=== PATIENT | male | born 1965 | race Caucasian/White ===

== ENCOUNTER 2016-04-04 08:43 | Emergency (ER) | payer MEDICAID ==
[~2016-04-04] VITALS: Ht 162.6 cm; Wt 78.2 kg
[~2016-04-04 08:43] MED LIST: ASPIRIN 81M81 MG/TA2 PO; ASPIRIN E.C. 8181 MG PO; CEFTIN500 MG PO; COREG 3.123.125 MG/T PO; FENTANYL 50MCG TD; FISH OIL 1000MG1 CAP PO; FLOMAX 0.40.4 MG/CAP PO; LAMICTAL XR200 MG PO; LAMICTAL200 MG PO; LASIX 20MG TABL20 MG PO; LIPITOR 80MG80 MG PO; NO HOME MEDICATIONS; NORCO 325 MG-51 TAB PO; PLAVIX 75MG TAB75 MG PO; PREDNISONE20 MG PO; PRINIVIL5 MG PO; PROTONIX 40MG T40 MG PO; RANEXA 500MG T500 MG PO; RANEXA1000 MG PO; REMERON 15M15 MG/TA1 PO; REMERON30 MG PO; TOPROL XL 25MG25 MG PO; VALIUM5 MG PO; VICODIN 5/300 PO; VOLTAREN 75 DR75 MG PO; ZOFRAN ODT4 MG PO; ZOLOFT 100MG100 MG PO; ZOLOFT 50MG50 MG PO
[2016-04-04 08:45] VITALS: BP 145/90; TEMP 98.4
[2016-04-04 09:42] LABS: BASO % 0.4 % (0.0-2.0); EOS # 0.2 (0.0-0.7); EOS % 2.9 % (0-4.0); GRAN % 58.5 % (42.2-75.2); HEMATOCRIT 43.6 % (42.0-52.0); HEMOGLOBIN 14.5 g/dl (13.5-18.0); LYMPH # 1.9 (1.2-3.4); LYMPH % 28.4 % (20.0-51.0); MEAN CELL VOLUME 88 fl (80.0-100.0); MEAN CORPUSCULAR HEMOGLOBIN 29 pg (27.0-31.0); MEAN CORPUSCULAR HGB CONC 33 g/dl (33.0-37.0); MEAN PLATELET VOLUME 8.7 fl (7.4-10.4); MONO # 0.6 (0.1-0.6); MONO % 9.4 % (1.7-9.3); PLATELET COUNT 298 K/mm3 (130-400); RED BLOOD COUNT 4.95 M/mm3 (4.20-5.60); REDCELL DISTRIBUTION WIDTH-CV 12.7 % (11.5-14.5); WHITE BLOOD COUNT 6.8 K/mm3 (4.8-10.8)
[2016-04-04 09:53] LABS: ADJUSTED CALCIUM 9.2 mg/dL (8.4-10.2); BILIRUBIN,TOTAL 0.7 mg/dL (0.0-1.0); C-REACTIVE PROTEIN 3.4 mg/dL (0.0-0.9); CALCIUM 9.2 mg/dL (8.4-10.2); CREATININE, serum 0.89 mg/dL (0.66-1.25); POTASSIUM 4.5 mmol/L (3.4-5.0)
[2016-04-04 10:45] LABS: ERYTHROCYTE SEDIMENTATION RATE 7 mm/hr (0-30)
[2016-04-04] MEDS ORDERED: MEDROL 4MG DOSPA4 MG PO (10:59)
[2016-04-04 11:21] VITALS: PULSE 79
== END 2016-04-04 11:26 | disposition home or self-care (01) ==
LOC: COL.ER 08:43
PROVIDERS: Emergency Medicine
DX: R51 Headache (principal)
CPT/HCPCS: J1100; J1200; J1630; J7030

== ENCOUNTER → 2016-04-22 | Outpatient (REF) ==
[~2016-04-22] MED LIST changes: +MEDROL 4MG DOSPA4 MG PO
[2016-04-22 17:28] LABS: TOTAL IRON BINDING CAPACITY 388 ug/dL (261-462)
[2016-04-22 17:37] LABS: FERRITIN 43 ng/mL (18-464)
== END ==
LOC: ZLAB.WCH 16:01
PROVIDERS: Internal Medicine
DX: Z01.89 Encounter for other specified special examinations (principal)

== ENCOUNTER → 2016-08-28 | Outpatient (REF) | LOC: ZLAB.WCH 18:33 | DX: Z01.89 Encounter for other specified special examinations (principal) ==

== ENCOUNTER → 2016-11-18 | Outpatient (CLI) | payer OTHER | LOC: COL.PUL 11-03 11:20 | DX: R06.02 Shortness of breath (principal); Z87.891 Personal history of nicotine dependence ==

== ENCOUNTER → 2017-02-27 | Outpatient (REF) ==
[2017-02-27 22:48] LABS: PSA-TOTAL 1.88 ng/mL (0-4); THYROID STIMULATING HORMONE 1.96 uIU/mL (0.465-4.680)
== END ==
LOC: ZLAB.WCH 19:05
PROVIDERS: Internal Medicine
DX: Z01.89 Encounter for other specified special examinations (principal)
CPT/HCPCS: G0103

== ENCOUNTER 2019-11-08 20:37 | Observation (INO) | payer MEDICARE ==
[~2019-11-08] VITALS: Ht 162.6 cm; Wt 70.3 kg
[2019-11-08 21:30] LABS: ALANINE AMINOTRANSFERASE 24 U/L (4-49); ALBUMIN 4.6 gm/dL (3.5-5.0); ALKALINE PHOSPHATASE 63 U/L (50-136); ANION GAP 14 mmol/L (7-16); AST,SGOT 29 U/L (15-37); BILIRUBIN,TOTAL 0.6 mg/dL (0.0-1.0); BLOOD UREA NITROGEN 21 mg/dL (9-20); CALCIUM 9.3 mg/dL (8.4-10.2); CARBON DIOXIDE 26 mmol/L (22-30); CHLORIDE 98 mmol/L (98-107); CREATININE, serum 1.62 (0.66-1.25); GLUCOSE 119 mg/dL (74-106); SODIUM 138 mmol/L (137-145); TOTAL PROTEIN 7.8 gm/dL (6.4-8.2)
[2019-11-08 21:31] LABS: BASO % 0.4 % (0.0-2.0); EOS # 0.1 (0.0-0.7); EOS % 1.4 % (0-4.0); GRAN # 5.1 (1.4-6.5); GRAN % 63.3 % (42.2-75.2); HEMATOCRIT 41.6 % (42.0-52.0); HEMOGLOBIN 14.2 g/dl (13.5-18.0); LYMPH # 2.1 (1.2-3.4); LYMPH % 26.9 % (20.0-51.0); MEAN CELL VOLUME 85 fl (80.0-100.0); MEAN CORPUSCULAR HEMOGLOBIN 29 pg (27.0-31.0); MEAN CORPUSCULAR HGB CONC 34 g/dl (33.0-37.0); MEAN PLATELET VOLUME 9.3 fl (7.4-10.4); MONO # 0.6 (0.1-0.6); MONO % 7.2 % (1.7-9.3); PLATELET COUNT 348 K/mm3 (130-400); RED BLOOD COUNT 4.91 M/mm3 (4.20-5.60); REDCELL DISTRIBUTION WIDTH-CV 13.2 % (11.5-14.5)
[2019-11-08 22:15] LABS: TROPONIN-I < 0.012 ng/mL (0.000-0.035)
[2019-11-08] MEDS ORDERED: DESYREL 100MG100 MG PO (22:39)
[2019-11-08] MEDS ORDERED: LAMICTAL200 MG PO (22:39)
[2019-11-08] MEDS ORDERED: DEPO-TESTOS200 MG/M1 IM (22:40)
[2019-11-08] MEDS ORDERED: COREG 25MG25 MG/TAB PO (22:40)
[2019-11-08] MEDS ORDERED: PROTONIX 40MG T40 MG PO (22:40)
[2019-11-08] MEDS ORDERED: K-TAB20 PO (22:41)
[2019-11-08] MEDS ORDERED: PRINIVIL10 MG PO (22:41)
[2019-11-08] MEDS ORDERED: LASIX 20MG TABL20 MG PO (22:42)
[2019-11-08] MEDS ORDERED: PLAVIX 75MG TAB75 MG PO (22:42)
[2019-11-08] MEDS ORDERED: RANEXA1000 MG PO (22:43)
[2019-11-08] MEDS ORDERED: LIPITOR 80MG80 MG PO (22:43)
[2019-11-08] MEDS ORDERED: LOFIBRA160 MG PO (22:43)
[2019-11-08] MEDS ORDERED: KLONOPIN 0.5MG0.5 MG PO (22:44)
[2019-11-08] MEDS ORDERED: VIIBRYD40 MG PO (22:44)
[2019-11-08] MEDS ORDERED: SEROQUEL50 MG PO (22:44)
[2019-11-08] MEDS ORDERED: ABILIFY 15MG TA15 MG PO (22:44)
[2019-11-08] MEDS ORDERED: PULMICORT90 MCG/Act IH (22:45)
[2019-11-08] MEDS ORDERED: PROAIR HFA0.09 MG/AC IH (22:46)
--- NOTE | 2019-11-08 23:40 | NUR ---
Received patient from ER. Patient came in walking. He is alert and oriented. He denies pain. He has INT on his left AC. 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 Assesment done. List of medicines were given to Mckayla PORTILLO. Patient has been walking frequently inside his bedroom. He wanted to take a shower tonight. Explained to patient the potassium protocol and he verbalizes understanding. Provided patient with sandwich box. Call light within reach.
[2019-11-08] MEDS ORDERED: NORCO 325 MG-7.1 TAB PO (23:52)
[2019-11-08 23:53] VITALS: BP 119/80; PULSE 77; TEMP 98.1
[2019-11-08 23:55] VITALS: BP 119/80; PULSE 75; TEMP 98.1
[2019-11-09] MEDS ORDERED: ASPIRIN 81M81 MG/TA2 PO (00:16)
[2019-11-09 04:37] VITALS: BP 94/63; PULSE 61; TEMP 97.3
--- NOTE | 2019-11-09 05:38 | NUR ---
Patient had uneventful night. He denies pain. Potassium dosage completed. He did take a bath last night. Will endorse to day shift nurse.
[2019-11-09 07:23] LABS: BASO % 0.4 % (0.0-2.0); EOS # 0.1 (0.0-0.7); EOS % 1.8 % (0-4.0); GRAN # 4.1 (1.4-6.5); GRAN % 60.6 % (42.2-75.2); HEMATOCRIT 38.3 % (42.0-52.0); HEMOGLOBIN 12.7 g/dl (13.5-18.0); LYMPH # 1.9 (1.2-3.4); LYMPH % 27.4 % (20.0-51.0); MEAN CELL VOLUME 85 fl (80.0-100.0); MEAN CORPUSCULAR HEMOGLOBIN 28 pg (27.0-31.0); MEAN CORPUSCULAR HGB CONC 33 g/dl (33.0-37.0); MEAN PLATELET VOLUME 9.5 fl (7.4-10.4); MONO # 0.6 (0.1-0.6); MONO % 8.8 % (1.7-9.3); PLATELET COUNT 323 K/mm3 (130-400); RED BLOOD COUNT 4.49 M/mm3 (4.20-5.60); REDCELL DISTRIBUTION WIDTH-CV 13.2 % (11.5-14.5)
[2019-11-09 07:29] LABS: CALCIUM 8.8 mg/dL (8.4-10.2); CREATININE, serum 1.49 (0.66-1.25); MAGNESIUM 2.7 mg/dL (1.6-2.3); POTASSIUM 4.5 mmol/L (3.4-5.0)
[2019-11-09 08:18] VITALS: BP 116/77; PULSE 76; TEMP 98.1
--- NOTE | 2019-11-09 09:15 | NUR ---
Pt awake and alert upon entry, no C/O pain currently, verbal order to keep Pt NPO for possible pacemeker lead revision, heparin held for possible procedure. Shift assessments complete, left Pt call light in reach, bed in lowest position.
--- NOTE | 2019-11-09 11:37 | NUR ---
KAI met with the patient to discuss discharge plan. The patient lives in [place] with his parents: Karan (ph#[phone]), Sima, and his brother (Karan, ph#[phone]). He reports independence with ADLs and does not have any DME. The patient's PCP is Dr. Maikel Knight and he receives his medications at [facility]. The patient does not have advanced directives, but he was interested in obtaining a form for DPOA-HC. KAI provided. The patient states that he is not . He states that he has two adult children: Cirilo and Sadaf. The patient plans to return home with his family upon discharge. No additional needs at this time.
[2019-11-09 12:36] VITALS: BP 99/59; PULSE 57; TEMP 97.9
--- NOTE | 2019-11-09 12:56 | NUR ---
First visit from the post doctoral researcher. No needs right now.
[2019-11-09 16:28] VITALS: BP 104/65; PULSE 73; TEMP 98
--- NOTE | 2019-11-09 19:43 | NUR ---
Pt resting in the room most of the day, has ambulated in the hallway on own, no C/O pain. VS have remained stable.
[2019-11-09 19:44] VITALS: BP 96/64; PULSE 72; TEMP 97
--- NOTE | 2019-11-09 21:50 | NUR ---
Pt assessment completed, charted, alert, oriented, roomair, independpent. Meds provided as per MAY, tolerated well. Helped him settled down on bed, call light on reach. No further needs at this time.
[2019-11-09 23:19] VITALS: BP 109/65; PULSE 84; TEMP 99.2
[2019-11-10 03:27] VITALS: BP 122/65; PULSE 86; TEMP 98.7
--- NOTE | 2019-11-10 04:56 | NUR ---
Pt had an uneventful night, slept on and off through out the night. No further needs at this time.
[2019-11-10 07:23] VITALS: BP 112/69; PULSE 73; TEMP 98.3
[2019-11-10 07:41] LABS: BASO % 0.3 % (0.0-2.0); EOS # 0.1 (0.0-0.7); GRAN # 4.3 (1.4-6.5); GRAN % 60.2 % (42.2-75.2); HEMATOCRIT 37.8 % (42.0-52.0); HEMOGLOBIN 12.5 g/dl (13.5-18.0); LYMPH # 2.1 (1.2-3.4); LYMPH % 29.4 % (20.0-51.0); MEAN CELL VOLUME 87 fl (80.0-100.0); MEAN CORPUSCULAR HEMOGLOBIN 29 pg (27.0-31.0); MEAN CORPUSCULAR HGB CONC 33 g/dl (33.0-37.0); MEAN PLATELET VOLUME 9.4 fl (7.4-10.4); MONO # 0.6 (0.1-0.6); MONO % 8.5 % (1.7-9.3); PLATELET COUNT 302 K/mm3 (130-400); RED BLOOD COUNT 4.35 M/mm3 (4.20-5.60); REDCELL DISTRIBUTION WIDTH-CV 13.3 % (11.5-14.5)
[2019-11-10 07:56] LABS: CALCIUM 9.1 mg/dL (8.4-10.2); CREATININE, serum 1.32 (0.66-1.25); MAGNESIUM 2.3 mg/dL (1.6-2.3); POTASSIUM 3.4 mmol/L (3.4-5.0)
--- NOTE | 2019-11-10 08:50 | NUR ---
Pt awake and alert this morning, upon entry, no C/O pain tasneem this time, shift assessments complete, left Pt call light in reach, bed in lowest position.
--- NOTE | 2019-11-10 13:30 | NUR ---
Pt discharged to home, discussed discharge instructions, answered questions. Escorted Pt to entrance, Pt left with family vis private auto.
== END 2019-11-10 13:30 | disposition home or self-care (01) ==
LOC: COL.ER 20:37 → MEDICAL 21:47
PROVIDERS: Emergency Medicine; Nurse Practitioner Family; Physician Assistant; ADMIT Hospitalist
DX: T82.118A Breakdown (mechanical) of other cardiac electronic device, initial encounter (principal); E87.6 Hypokalemia; N18.9 Chronic kidney disease, unspecified; I25.10 Atherosclerotic heart disease of native coronary artery without angina pectoris; I42.9 Cardiomyopathy, unspecified; F43.10 Post-traumatic stress disorder, unspecified; F32.9 Major depressive disorder, single episode, unspecified; G89.29 Other chronic pain; K21.9 Gastro-esophageal reflux disease without esophagitis; Z85.820 Personal history of malignant melanoma of skin; J44.9 Chronic obstructive pulmonary disease, unspecified; Z79.02 Long term (current) use of antithrombotics/antiplatelets; Z79.82 Long term (current) use of aspirin; Z87.891 Personal history of nicotine dependence; I25.2 Old myocardial infarction
CPT/HCPCS: 99232-AI; G0378; J1644; J3475

== ENCOUNTER 2020-08-16 13:12 | Emergency (ER) | payer MEDICARE ==
[~2020-08-16] VITALS: Ht 165.1 cm; Wt 79.5 kg
[~2020-08-16 13:12] MED LIST changes: +ABILIFY 15MG TA15 MG PO; +COREG 25MG25 MG/TAB PO; +DEPO-TESTOS200 MG/M1 IM; +DESYREL 100MG100 MG PO; +K-TAB20 PO; +KLONOPIN 0.5MG0.5 MG PO; +LOFIBRA160 MG PO; +NORCO 325 MG-7.1 TAB PO; +PRINIVIL10 MG PO; +PROAIR HFA0.09 MG/AC IH; +PULMICORT90 MCG/Act IH; +SEROQUEL50 MG PO; +VIIBRYD40 MG PO
[2020-08-16 13:18] VITALS: TEMP 98.5
[2020-08-16 13:44] LABS: BASO % 0.3 % (0.0-2.0); EOS # 0.1 (0.0-0.7); EOS % 1.3 % (0-4.0); GRAN % 63.9 % (42.2-75.2); HEMATOCRIT 42.3 % (42.0-52.0); HEMOGLOBIN 14.2 g/dl (13.5-18.0); LYMPH # 1.5 (1.2-3.4); LYMPH % 23.5 % (20.0-51.0); MEAN CELL VOLUME 86 fl (80.0-100.0); MEAN CORPUSCULAR HEMOGLOBIN 29 pg (27.0-31.0); MEAN CORPUSCULAR HGB CONC 34 g/dl (33.0-37.0); MONO # 0.7 (0.1-0.6); MONO % 10.7 % (1.7-9.3); PLATELET COUNT 311 K/mm3 (130-400); RED BLOOD COUNT 4.94 M/mm3 (4.20-5.60); REDCELL DISTRIBUTION WIDTH-CV 13.2 % (11.5-14.5)
[2020-08-16 14:03] LABS: ALANINE AMINOTRANSFERASE 23 U/L (4-49); ALBUMIN 4.3 gm/dL (3.5-5.0); ALKALINE PHOSPHATASE 45 U/L (50-136); ANION GAP 7 mmol/L (7-16); AST,SGOT 22 U/L (15-37); BILIRUBIN,TOTAL 0.6 mg/dL (0.0-1.0); BLOOD UREA NITROGEN 12 mg/dL (9-20); CALCIUM 9.1 mg/dL (8.4-10.2); CARBON DIOXIDE 24 mmol/L (22-30); CHLORIDE 105 mmol/L (98-107); CREATININE, serum 1.08 (0.66-1.25); GLUCOSE 104 mg/dL (74-106); SODIUM 136 mmol/L (137-145); TOTAL PROTEIN 7.5 gm/dL (6.4-8.2)
[2020-08-16 14:22] LABS: TROPONIN-I < 0.012 ng/mL (0.000-0.035)
[2020-08-16 15:57] LABS: INR 1.1 (0.8-3.0); PARTIAL THROMBOPLASTIN TIME 33.1 SECONDS (26.0-37.0); PROTHROMBIN TIME 11.9 SECONDS (9.7-12.8)
[2020-08-16 16:30] VITALS: BP 129/84; PULSE 75
== END 2020-08-16 16:30 | disposition left against medical advice (07) ==
LOC: COL.ER 13:12
PROVIDERS: Family Medicine
DX: R07.89 Other chest pain (principal); I25.10 Atherosclerotic heart disease of native coronary artery without angina pectoris; I21.3 ST elevation (STEMI) myocardial infarction of unspecified site; J44.9 Chronic obstructive pulmonary disease, unspecified; F43.10 Post-traumatic stress disorder, unspecified; Z95.0 Presence of cardiac pacemaker; Z87.891 Personal history of nicotine dependence; Z79.02 Long term (current) use of antithrombotics/antiplatelets; Z79.51 Long term (current) use of inhaled steroids; Z79.82 Long term (current) use of aspirin
CPT/HCPCS: J0780

== ENCOUNTER → 2022-04-08 | Outpatient (CLI) | payer MEDICARE | LOC: COL.RAD 13:00 | DX: R42 Dizziness and giddiness (principal); E87.8 Other disorders of electrolyte and fluid balance, not elsewhere classified | CPT/HCPCS: Q9967 ==

== ENCOUNTER → 2023-06-08 | Outpatient (CLI) | payer MEDICARE | LOC: COL.LAB 15:17 | DX: N28.89 Other specified disorders of kidney and ureter (principal); R93.422 Abnormal radiologic findings on diagnostic imaging of left kidney ==

== ENCOUNTER 2023-10-06 06:29 | Day surgery (SDC) | payer MEDICARE ==
[2023-10-06] VITALS (10 sets, daily range): BP systolic 106–150; BP diastolic 55–87; PULSE 59–75; TEMP 97.6–99.3
[~2023-10-06] VITALS: Ht 160 cm; Wt 76.0 kg
[~2023-10-06 06:29] MED LIST changes: +K-DUR20 MEQ PO; -K-TAB20 PO; +LASIX 40MG TABL40 MG PO; +SEROQUEL 200MG200 MG PO; -SEROQUEL50 MG PO
[2023-10-06] MEDS ORDERED: LR 1,000 ML IV SCH ×2 (07:00→11:15)
[2023-10-06] MEDS ORDERED: Famotidine 20 MG TAB PO SCH (07:00)
[2023-10-06] MEDS ORDERED: fentaNYL 50 MCG/ML 2 ML VIAL ONE ×2 (07:27→09:18)
[2023-10-06] MEDS ORDERED: Rocuronium 50 MG/5 ML Multi-Dose VIAL ONE (07:27)
[2023-10-06] MEDS ORDERED: Midazolam 2 MG/2 ML VIAL ONE (07:27)
[2023-10-06] MEDS ORDERED: Acetaminophen 500 MG TAB PO SCH ×2 (07:30→12:12)
[2023-10-06] MEDS ORDERED: Celecoxib 200 MG CAP PO SCH (07:30)
[2023-10-06] MEDS ORDERED: Gabapentin 100 MG CAP PO SCH (07:30)
[2023-10-06] MEDS ORDERED: Lidocaine PF 2% (20 MG/ML) 5 ML VIAL ONE (07:34)
[2023-10-06] MEDS ORDERED: Ondansetron 4 MG/2 ML VIAL ONE (07:36)
[2023-10-06] MEDS ORDERED: Glycopyrrolate 0.2 MG/ML 1 ML VIAL ONE (07:36)
[2023-10-06] MEDS ORDERED: dexAMETHasone 10 MG/ML VIAL ONE (07:36)
[2023-10-06] MEDS ORDERED: NS 10 ML IV ONE (07:53)
[2023-10-06] MEDS ORDERED: Topical Skin Adhesive 1 EACH (1 ML) TOP ONE (08:00)
[2023-10-06] MEDS ORDERED: ARNUITY IH (08:44)
[2023-10-06] MEDS ORDERED: ENTRESTO 24 MG1 EACH PO (08:46)
[2023-10-06] MEDS ORDERED: D3-5050000 IU PO (08:48)
[2023-10-06] MEDS ORDERED: EPA FISH OIL1 SGL PO (08:49)
[2023-10-06] MEDS ORDERED: IMDUR 60MG60 MG/TAB PO (08:51)
[2023-10-06] MEDS ORDERED: REMERON45 MG PO (08:53)
[2023-10-06] MEDS ORDERED: NITROSTAT0.4 MG/TAB SL (08:54)
[2023-10-06] MEDS ORDERED: ULTRAM 50MG TAB50 MG PO (08:55)
[2023-10-06] MEDS ORDERED: OZEMPIC0.25 MG/02 SQ (10:39)
[2023-10-06] MEDS ORDERED: fentaNYL 50 MCG/ML 1 ML SYRINGE/VIAL [PACU/SDC ONLY] IV PRN (11:00)
[2023-10-06] MEDS ORDERED: hydrALAZINE 20 MG/ML 1 ML VIAL IV PRN (11:00)
[2023-10-06] MEDS ORDERED: Ondansetron 4 MG/2 ML VIAL IV PRN ×2 (11:00→11:15)
[2023-10-06] MEDS ORDERED: HYDROmorphone 1 MG/1 ML SYRINGE [PACU/SDC ONLY] IV PRN (11:00)
[2023-10-06] MEDS ORDERED: Morphine 4 MG/ML VIAL IV PRN (11:15)
[2023-10-06] MEDS ORDERED: Hyoscyamine 0.125 MG Sublingual TAB SL PRN (11:15)
[2023-10-06] MEDS ORDERED: oxyCODONE 5 MG TAB PO PRN ×2 (11:15)
[2023-10-06] MEDS ORDERED: Naloxone 0.4 MG/ML VIAL IV PRN (11:15)
[2023-10-06] MEDS ORDERED: ePHEDrine 50 MG/ML VIAL ONE (11:43)
--- NOTE | 2023-10-06 12:50 | NUR ---
PATIENT ADMITED INTO ROOM 349 POST OP. ALERT, ORIENTED X3, BUT IS VERY TALKATIVE AND SEEMS A LITTLE INFLUENCED BY THE ANESTHESIA. GIRLFRIEND AT BEDSIDE LAUGHING AT PATIENT'S COMMENTS. VSS. NO C/O PAIN OR NAUSEA. IV FLUIDS INFUSING INTO RIGHT HAND IV. LEFT HAND IV TO INT. GOSS TO DD WITH SMALL AMOUNTS OF YELLOW URINE NOTED. ABD LAP SITES X6 WITH GLUED CLOSURE. HEAD TO TOE ASSESSMENT COMPLETE. SCD'S TO BLE. ORIENTED TO ROOM. NO OTHER NEEDS AT THIS TIME. CALL LIGHT IN REACH.
[2023-10-06] MEDS ORDERED: Carvedilol 25 MG TAB PO SCH (17:00)
--- NOTE | 2023-10-06 18:51 | NUR ---
report received from jahaiar kwon. pt resting in bed with girlfriend at bedside. pt reporting some pain but just recieved PRN from previous shift. call light in reach. all needs met at this time.
[2023-10-06] MEDS ORDERED: Budesonide Neb Susp 0.5 MG/2 ML AMP IH SCH (19:00)
[2023-10-06] MEDS ORDERED: ceFAZolin 1 G in Water For Injection,Sterile 10 ML IV SCH (20:00)
[2023-10-06] MEDS ORDERED: QUEtiapine 25 MG TAB PO SCH (21:00)
[2023-10-06] MEDS ORDERED: Sennosides/Docusate 8.6-50 MG TAB PO SCH (21:00)
[2023-10-06] MEDS ORDERED: traZODone 100 MG TAB PO SCH (21:00)
[2023-10-06] MEDS ORDERED: Mirtazapine 15 MG TAB PO SCH (21:00)
[2023-10-06] MEDS ORDERED: Ranolazine ER 500 MG TAB PO SCH (21:00)
--- NOTE | 2023-10-06 21:52 | NUR ---
shift assessment complete, see documentation. pt tolerated hs meds well. pt reporting 9/10 abd pain, prn morphine administered per orders. pt resting in bed with girlfriend at bedside. call light in reach. all needs met at this time.
[2023-10-07] VITALS (11 sets, daily range): BP systolic 100–150; BP diastolic 62–67; PULSE 70–76; TEMP 98–98.8
--- NOTE | 2023-10-07 00:03 | NUR ---
pt finally sleeping. equal and unlabored breaths noted. did not get midnight vitals d/t pt resting.
--- NOTE | 2023-10-07 01:59 | NUR ---
pt reporting increased abd pain rated 7/10. prn oxycodone administered per orders.
--- NOTE | 2023-10-07 05:34 | NUR ---
pt salgado removed. pt tolerated procedure well.
[2023-10-07 06:11] LABS: HEMATOCRIT 38.1 % (42.0-52.0); HEMOGLOBIN 12.7 g/dl (13.5-18.0)
[2023-10-07 06:20] LABS: CALCIUM 8.8 mg/dL (8.4-10.2); CREATININE, serum 1.52 mg/dL (0.72-1.25); POTASSIUM 3.8 mEq/L (3.5-4.5)
--- NOTE | 2023-10-07 06:55 | NUR ---
PT SLEEPING IN BED. PT IS RA. PT IS NOT ON TELE. PT HAS NO IVF. PT IS DTV, URINAL BEDSIDE. PT IS AXOX4. PT HAS CALL LIGHT AND INSTRUCTED TO CALL WITH ALL NEEDS.
[2023-10-07] MEDS ORDERED: Isosorbide Mononitrate CR (24-HR) 60 MG TAB PO SCH (07:00)
[2023-10-07] MEDS ORDERED: Fluticasone Furoate 100 MCG/Inhalation INHALER IH SCH (09:00)
[2023-10-07] MEDS ORDERED: ARIPiprazole 5 MG TAB PO SCH (09:00)
[2023-10-07] MEDS ORDERED: Vilazodone 10 MG TAB PO SCH (09:00)
[2023-10-07] MEDS ORDERED: Furosemide 40 MG TAB PO SCH (09:00)
[2023-10-07] MEDS ORDERED: lamoTRIgine 100 MG TAB PO SCH (09:00)
--- NOTE | 2023-10-07 09:29 | NUR ---
KAI met with patient and his friend to complete initial assessment for discharge planning. Patient verified that he lives in [place] with a roommate. He lists his friend Becky Cole ([phone]) as his emergency contact. Patient denies having a DPOA and declines to complete one at this time, and states he is working on completing one. Patient sees MOISÉS Nava, as his PCP and uses [facility]. Patient denies having any DME. Patient states he drive himself to appointments but always takes someone with him. Patient plans to return home at discharge. Discharge plan: Home
--- NOTE | 2023-10-07 12:59 | NUR ---
Data: Patient declined spiritual care visit offered during Associate Professor Of Education rounds because he was trying to sleep. Patient accepted a rosary which was placed on his bedside table. Assessment: None. Patient declined. Plan of Care: Chaplains will remain available as needed/requested while Patient is admitted to this hospital.
--- NOTE | 2023-10-07 16:43 | NUR ---
SPOKE WITH REGARDING PTS STATUS. PT TOLERATING FOOD WELL. PT'S PAIN CONTROLLED ON PO PAIN MEDS. PT VOIDING WITHOUT DIFFICULTY. WILL PLAN TO DC IN THE AM.
--- NOTE | 2023-10-07 19:10 | NUR ---
report received from santana kwon. pt sitting in bed finishing dinner. pt denies pain. call light in reach. all needs met at this time.
--- NOTE | 2023-10-07 19:47 | NUR ---
pt now reporting 8/10 abd pain, prn oxycodone administered. pt educated walking might release some gas pain, pt acknowledged.
[2023-10-07] MEDS ORDERED: Atorvastatin 80 MG TAB PO SCH (21:00)
--- NOTE | 2023-10-07 21:35 | NUR ---
shift assessment complete, see documentation. pt tolerated hs meds. pt reporting abd rated 3/10. pt ambulated halls and stated that relieved some of his pain. resting in bed now. call light in reach. all needs met at this time.
[2023-10-08 00:03] VITALS: BP 108/66; PULSE 89; TEMP 98.8
[2023-10-08 01:31] VITALS: BP_SYST 108
[2023-10-08 03:24] VITALS: BP 111/71; PULSE 86; TEMP 98.2
--- NOTE | 2023-10-08 03:32 | NUR ---
pt reporting abd pain rated 7/10, prn oxycodone administered per orders.
[2023-10-08 05:02] VITALS: BP_SYST 111
[2023-10-08 07:10] VITALS: BP 102/64; PULSE 73; TEMP 98.5
[2023-10-08] MEDS ORDERED: PERCOCET 325 MG1 TA2 PO (07:44)
[2023-10-08 08:00] VITALS: BP_SYST 102
--- NOTE | 2023-10-08 09:49 | NUR ---
SHIFT ASSESSMENT COMPLETE. VSS. PATIENT AWAKE AND UP AMBULATING ROOM. ALL MORNING MEDS GIVEN ORDERED. PATIENT STATES NO PIAN AT THIS TIME. PATIENT HAS DISCHARGE ORDERS IN AND WILL DISCHARGE THIS AM. PATIENT HAS NO NEEDS AT THSI TIME. CALL LIGHT IN REACH.
--- NOTE | 2023-10-08 10:36 | NUR ---
DISCHARGE INSTRUCTIONS GIVEN AND ALL QUESTIONS ANSWERED. PATIENTS RIDE WILL HERE AROUND 11AM. INT DC'D CATHETER INTACT. PATIENT HAS NO OTHER NEEDS.
== END 2023-10-08 11:37 | disposition home or self-care (01) ==
LOC: SDCO 06:29 → SURG 12:45 → SDCO 10-08 11:37
PROVIDERS: Urology
DX: C64.2 Malignant neoplasm of left kidney, except renal pelvis (principal); E11.9 Type 2 diabetes mellitus without complications; Z85.820 Personal history of malignant melanoma of skin; Z92.3 Personal history of irradiation; Z87.891 Personal history of nicotine dependence; Z95.810 Presence of automatic (implantable) cardiac defibrillator; Z95.5 Presence of coronary angioplasty implant and graft; G47.33 Obstructive sleep apnea (adult) (pediatric)
CPT/HCPCS: OP; A4314; A9284; J0690; J1100; J2250; J2270; J2405; J2598; J2704; J2795; J3010; J7120